=== PATIENT | male | born 1940 | race Caucasian/White ===

== ENCOUNTER 2021-11-18 16:38 | Inpatient (IN) | payer MEDICARE ==
[~2021-11-18 16:38] MED LIST: Atropine Sulfate 1 mg/10 ml Syringe ONE
[2021-11-18 17:39] LABS: #Eosinphils 0.1 10x3/uL (0.0-0.5); #Monocytes 0.4 10x3/uL (0.0-1.1); #Neutrophils 5.7 10x3/uL (1.5-8.4); %Basophils 0.3 % (0.0-2.0); %Eosinophils 2.1 % (0.0-6.0); %Lymphocytes 4.7 % (18.0-47.0); %Monocytes 5.6 % (0.0-10.0); %Neutrophils 86.7 % (40.0-75.0); Hemoglobin 11.2 g/dL (13.5-17.5); Mean Corpuscular HGB CONC 33.4 g/dL (32.0-36.0); Mean Corpuscular Hemoglobin 28.6 pg (27.0-33.0); Mean Corpuscular Volume 85.5 fl (81.2-95.1); Mean Platelet Volume 10.8 fl (7.4-10.4); Platelet Count 202 10x3/uL (150-450); RBC Distribution Width 18.6 % (11.5-14.5); Red Blood Cell (RBC) Count 3.92 10x6/uL (4.32-5.72); White Blood Cell (WBC) Count 6.6 10x3/uL (3.5-10.5)
[2021-11-18 17:48] LABS: ALT (SGPT) 26 U/L (8-55); AST (SGOT) 22 U/L (5-34); Albumin 3.6 g/dL (3.4-4.8); Alkaline Phosphatase 147 U/L (40-110); Anion Gap 17 mmol/L (10-20); BUN (Urea Nitrogen) 55 mg/dL (8.4-25.7); Bilirubin, Total 1.1 mg/dL (0.2-1.2); Calc. Creatinine Clearance 0 mL/min (70-130); Calcium 9.3 mg/dL (7.8-10.44); Carbon Dioxide 24 mmol/L (23-31); Chloride 103 mmol/L (98-107); Globulin 4.7 g/dL (2.4-3.5); Glucose 264 mg/dL (83-110); Potassium 3.9 mmol/L (3.5-5.1); Protein, Total 8.3 g/dL (5.8-8.1); Sodium 140 mmol/L (136-145)
[2021-11-18] MEDS ORDERED: Piperacillin/Tazobactam 4.5 GM VIAL ONE (18:02)
[2021-11-18] MEDS ORDERED: Succinylcholine 200 MG/10 ml SYRINGE FS ONE (18:54)
[2021-11-18] MEDS ORDERED: Rocuronium Bromide 10 MG/ML (10ML VIAL) ONE (18:54)
[2021-11-18 18:55] LABS: CKMB 1.7 ng/mL (0-6.6)
[2021-11-18] MEDS ORDERED: Acetaminophen 325 MG TAB PO PRN (20:30)
[2021-11-18] MEDS ORDERED: Dextrose 5% in Water 1,000 ML IV PRN (20:45)
[2021-11-18] MEDS ORDERED: Atropine Sulfate 1 mg/10 ml Syringe ONE (20:46)
[2021-11-18] MEDS ORDERED: EPINEPHrine 1 MG/10 ML Abboject SYRINGE ONE (20:46)
[2021-11-18 21:06] LABS: Magnesium 2.1 mg/dL (1.6-2.6)
[2021-11-18 21:40] LABS: Troponin I 0.038 ng/mL (< 0.028)
[2021-11-18] MEDS ORDERED: Cholecalciferol 1,000 UNITS (25 MCG) TAB PO SCH (22:45)
[2021-11-18] MEDS ORDERED: Zinc Sulfate 220 MG CAP PO SCH (22:45)
[2021-11-18] MEDS ORDERED: Ascorbic Acid 500 mg Chewable Tablet PO SCH (22:45)
[2021-11-18] MEDS ORDERED: Lantus 1000 UNITS/10 ML VIAL SC SCH (23:00)
[2021-11-18] MEDS ORDERED: Aspirin 81 mg Enteric Coated Tablet PO SCH (23:00)
[2021-11-18] MEDS ORDERED: Atorvastatin Calcium 10 MG TAB PO SCH (23:00)
[2021-11-18] MEDS ORDERED: Dexamethasone 4 mg/ml Vial SLOW IVP SCH (23:00)
[2021-11-18] MEDS: cefTRIAXone\\ROCEPHIN 2 GM in Sodium Chloride 0.9% 100 ML IVPB SCH (23:16)
[2021-11-18] MEDS: Sodium Chloride 0.9% 1,000 ML IV SCH (23:16)
[2021-11-18] MEDS: HumaLOG 300 UNITS/3 ML VIAL SC PRN (23:39)
[2021-11-18] MEDS ORDERED: Vancomycin HCl 500 MG in Sodium Chloride 0.9% 100 ML IVPB SCH (23:45)
[2021-11-19] MEDS: Enoxaparin Sodium 80 MG/0.8 ML SYRINGE SC SCH (00:45)
[2021-11-19] MEDS ORDERED: hydrALAZINE 25 MG TAB PO SCH ×2 (01:00→09:00)
[2021-11-19] MEDS ORDERED: Carvedilol 25 MG TAB PO SCH (01:00)
[2021-11-19] MEDS: Azithromycin 500 MG in Sodium Chloride 0.9% 250 ML 250 ML IVPB SCH (01:27)
[2021-11-19 04:49] LABS: INR-International Normal Ratio 1.2; PTT 35.3 sec (22.0-33.0)
[2021-11-19 04:55] LABS: Anion Gap 15 mmol/L (10-20); BUN (Urea Nitrogen) 53 mg/dL (8.4-25.7); CRP (Inflammatory) 9.84 mg/dL (= or < 0.5); Calc. Creatinine Clearance 32 mL/min (70-130); Calcium 8.6 mg/dL (7.8-10.44); Carbon Dioxide 23 mmol/L (23-31); Chloride 106 mmol/L (98-107); Glucose 298 mg/dL (83-110); Potassium 3.6 mmol/L (3.5-5.1); Sodium 140 mmol/L (136-145)
[2021-11-19 05:03] LABS: Troponin I 0.033 ng/mL (< 0.028)
[2021-11-19 05:32] LABS: #Monocytes 0.1 10x3/uL (0.0-1.1); #Neutrophils 4.4 10x3/uL (1.5-8.4); %Basophils 0.2 % (0.0-2.0); %Lymphocytes 3.9 % (18.0-47.0); %Monocytes 1.1 % (0.0-10.0); %Neutrophils 94.2 % (40.0-75.0); Hemoglobin 9.9 g/dL (13.5-17.5); Mean Corpuscular HGB CONC 33.8 g/dL (32.0-36.0); Mean Corpuscular Hemoglobin 29.1 pg (27.0-33.0); Mean Corpuscular Volume 86.2 fl (81.2-95.1); Mean Platelet Volume 10.9 fl (7.4-10.4); Platelet Count 189 10x3/uL (150-450); RBC Distribution Width 18.2 % (11.5-14.5); White Blood Cell (WBC) Count 4.7 10x3/uL (3.5-10.5)
[2021-11-19] MEDS ORDERED: Dexamethasone 4 mg/ml Vial SLOW IVP SCH (09:00)
[2021-11-19] MEDS: Ascorbic Acid 500 mg Chewable Tablet PO SCH (09:10)
[2021-11-19] MEDS: Amlodipine 10 MG TAB PO SCH (09:11)
[2021-11-19] MEDS: Losartan Potassium 50 MG TAB PO SCH ×2 (09:11→11:19)
[2021-11-19] MEDS: Aspirin 81 mg Enteric Coated Tablet PO SCH (09:12)
[2021-11-19] MEDS: Carvedilol 25 MG TAB PO SCH ×2 (09:12→16:59)
[2021-11-19] MEDS: Zinc Sulfate 220 MG CAP PO SCH (09:12)
[2021-11-19] MEDS: Sodium Chloride 0.9% 1,000 ML IV SCH ×2 (09:13→21:00)
[2021-11-19] MEDS: Mometasone Furoate 220 MCG AER IH SCH ×2 (10:35→19:50)
[2021-11-19] MEDS: HumaLOG 300 UNITS/3 ML VIAL SC PRN (13:22)
[2021-11-19] MEDS: hydrALAZINE 25 MG TAB PO SCH ×2 (15:45→20:07)
[2021-11-19] MEDS: Dexamethasone 20 MG/5 ML VIAL SLOW IVP SCH (20:04)
[2021-11-19] MEDS: Cholecalciferol 1,000 UNITS (25 MCG) TAB PO SCH (20:07)
[2021-11-19] MEDS: Atorvastatin Calcium 10 MG TAB PO SCH (20:09)
[2021-11-19] MEDS: Lantus 1000 UNITS/10 ML VIAL SC SCH (20:10)
[2021-11-19] MEDS ORDERED: Losartan Potassium 50 MG TAB PO SCH (21:00)
[2021-11-20] MEDS: Enoxaparin Sodium 80 MG/0.8 ML SYRINGE SC SCH (00:30)
[2021-11-20] MEDS ORDERED: Azithromycin 500 MG VIAL ONE (01:00)
[2021-11-20] MEDS ORDERED: cefTRIAXone\\ROCEPHIN 2 GM VIAL ONE (01:01)
[2021-11-20] MEDS: cefTRIAXone\\ROCEPHIN 2 GM in Sodium Chloride 0.9% 100 ML IVPB SCH ×2 (01:05→21:46)
[2021-11-20] MEDS: Azithromycin 500 MG in Sodium Chloride 0.9% 250 ML 250 ML IVPB SCH (01:50)
[2021-11-20 06:10] LABS: Vancomycin, Random 6.4 ug/mL (See Comment)
[2021-11-20 06:19] LABS: Troponin I 0.025 ng/mL (< 0.028)
[2021-11-20] MEDS: Sodium Chloride 0.9% 1,000 ML IV SCH ×2 (06:46→15:43)
[2021-11-20] MEDS ORDERED: VANCOMYCIN 1.25 GM/250 ML BAG 1.25 GM in Premix Bag 1 BAG IVPB SCH (08:00)
[2021-11-20] MEDS: Mometasone Furoate 220 MCG AER IH SCH ×2 (08:10→19:20)
[2021-11-20] MEDS: Carvedilol 25 MG TAB PO SCH ×2 (09:20→15:45)
[2021-11-20] MEDS: Dexamethasone 20 MG/5 ML VIAL SLOW IVP SCH ×2 (09:25→21:49)
[2021-11-20] MEDS: Amlodipine 10 MG TAB PO SCH (09:25)
[2021-11-20] MEDS: Aspirin 81 mg Enteric Coated Tablet PO SCH (09:25)
[2021-11-20] MEDS: Ascorbic Acid 500 mg Chewable Tablet PO SCH (09:25)
[2021-11-20] MEDS: hydrALAZINE 25 MG TAB PO SCH ×3 (09:25→21:46)
[2021-11-20] MEDS: Zinc Sulfate 220 MG CAP PO SCH (09:25)
[2021-11-20] MEDS ORDERED: Labetalol HCl 100 MG/20 ML VIAL SLOW IVP PRN (11:01)
[2021-11-20] MEDS: HumaLOG 300 UNITS/3 ML VIAL SC PRN ×2 (17:35→22:31)
[2021-11-20] MEDS ORDERED: Vancomycin 1 GM in Premix Bag 1 BAG IVPB PRN (20:30)
[2021-11-20] MEDS: Cholecalciferol 1,000 UNITS (25 MCG) TAB PO SCH (21:46)
[2021-11-20] MEDS: Atorvastatin Calcium 10 MG TAB PO SCH (21:46)
[2021-11-20] MEDS: Lantus 1000 UNITS/10 ML VIAL SC SCH (21:47)
[2021-11-20] MEDS ORDERED: Amlodipine 10 MG TAB PO SCH (23:30)
[2021-11-21] MEDS: Azithromycin 500 MG in Sodium Chloride 0.9% 250 ML 250 ML IVPB SCH (00:08)
[2021-11-21] MEDS: Enoxaparin Sodium 80 MG/0.8 ML SYRINGE SC SCH (00:08)
[2021-11-21] MEDS: HumaLOG 300 UNITS/3 ML VIAL SC PRN ×3 (06:02→21:58)
[2021-11-21] MEDS: Sodium Chloride 0.9% 1,000 ML IV SCH ×2 (06:11→17:01)
[2021-11-21 07:02] LABS: #Monocytes 0.2 10x3/uL (0.0-1.1); #Neutrophils 14.1 10x3/uL (1.5-8.4); %Basophils 0.1 % (0.0-2.0); %Lymphocytes 1.6 % (18.0-47.0); %Monocytes 1.6 % (0.0-10.0); %Neutrophils 95.7 % (40.0-75.0); Mean Corpuscular HGB CONC 33.7 g/dL (32.0-36.0); Mean Corpuscular Hemoglobin 29.2 pg (27.0-33.0); Mean Corpuscular Volume 86.5 fl (81.2-95.1); Mean Platelet Volume 10.4 fl (7.4-10.4); Platelet Count 245 10x3/uL (150-450); RBC Distribution Width 18.4 % (11.5-14.5); Red Blood Cell (RBC) Count 3.77 10x6/uL (4.32-5.72); White Blood Cell (WBC) Count 14.8 10x3/uL (3.5-10.5)
[2021-11-21 07:23] LABS: Vancomycin, Random 13.6 ug/mL (See Comment)
[2021-11-21 07:25] LABS: Anion Gap 15 mmol/L (10-20); BUN (Urea Nitrogen) 63 mg/dL (8.4-25.7); CRP (Inflammatory) 3.42 mg/dL (= or < 0.5); Calc. Creatinine Clearance 32 mL/min (70-130); Calcium 8.7 mg/dL (7.8-10.44); Carbon Dioxide 21 mmol/L (23-31); Chloride 105 mmol/L (98-107); Glucose 274 mg/dL (83-110); Potassium 3.9 mmol/L (3.5-5.1); Sodium 137 mmol/L (136-145)
[2021-11-21] MEDS ORDERED: Lantus 1000 UNITS/10 ML VIAL SC SCH ×2 (09:00→10:15)
[2021-11-21] MEDS ORDERED: Vancomycin HCl 500 MG in Sodium Chloride 0.9% 100 ML IVPB SCH (09:00)
[2021-11-21] MEDS: Aspirin 81 mg Enteric Coated Tablet PO SCH (09:11)
[2021-11-21] MEDS: Ascorbic Acid 500 mg Chewable Tablet PO SCH (09:11)
[2021-11-21] MEDS: hydrALAZINE 25 MG TAB PO SCH ×3 (09:11→21:38)
[2021-11-21] MEDS: Dexamethasone 20 MG/5 ML VIAL SLOW IVP SCH ×2 (09:11→21:38)
[2021-11-21] MEDS: Amlodipine 10 MG TAB PO SCH (09:11)
[2021-11-21] MEDS: Carvedilol 25 MG TAB PO SCH ×2 (09:11→17:04)
[2021-11-21] MEDS: Zinc Sulfate 220 MG CAP PO SCH (09:12)
[2021-11-21] MEDS: Mometasone Furoate 220 MCG AER IH SCH ×2 (10:17→18:11)
[2021-11-21] MEDS ORDERED: cloNIDine 0.3mg/24 Hour PATCH TD SCH (17:00)
[2021-11-21] MEDS: Atorvastatin Calcium 10 MG TAB PO SCH (21:38)
[2021-11-21] MEDS: Famotidine 20 MG TAB PO SCH (21:38)
[2021-11-21] MEDS: Cefepime 1 GM in Sodium Chloride 0.9% 100 ML IVPB SCH (21:39)
[2021-11-21] MEDS: Lantus 1000 UNITS/10 ML VIAL SC SCH (21:39)
[2021-11-21] MEDS: Cholecalciferol 1,000 UNITS (25 MCG) TAB PO SCH (21:39)
[2021-11-22] MEDS: Azithromycin 500 MG in Sodium Chloride 0.9% 250 ML 250 ML IVPB SCH (00:41)
[2021-11-22] MEDS: Enoxaparin Sodium 80 MG/0.8 ML SYRINGE SC SCH (00:41)
[2021-11-22] MEDS: Sodium Chloride 0.9% 1,000 ML IV SCH ×3 (05:19→19:00)
[2021-11-22] MEDS: HumaLOG 300 UNITS/3 ML VIAL SC PRN (05:19)
[2021-11-22 05:30] LABS: Vancomycin, Random 11.9 ug/mL (See Comment)
[2021-11-22 05:37] LABS: Anion Gap 16 mmol/L (10-20); BUN (Urea Nitrogen) 63 mg/dL (8.4-25.7); CRP (Inflammatory) 2.69 mg/dL (= or < 0.5); Calc. Creatinine Clearance 34 mL/min (70-130); Calcium 8.8 mg/dL (7.8-10.44); Carbon Dioxide 18 mmol/L (23-31); Chloride 109 mmol/L (98-107); Glucose 203 mg/dL (83-110); Sodium 139 mmol/L (136-145)
[2021-11-22 06:34] LABS: #Monocytes 0.5 10x3/uL (0.0-1.1); #Neutrophils 17.3 10x3/uL (1.5-8.4); %Basophils 0.2 % (0.0-2.0); %Lymphocytes 0.9 % (18.0-47.0); %Monocytes 2.7 % (0.0-10.0); %Neutrophils 93.9 % (40.0-75.0); Hemoglobin 10.8 g/dL (13.5-17.5); Mean Corpuscular HGB CONC 30.9 g/dL (32.0-36.0); Mean Corpuscular Hemoglobin 25.8 pg (27.0-33.0); Mean Corpuscular Volume 83.5 fl (81.2-95.1); Mean Platelet Volume 10.4 fl (7.4-10.4); Platelet Count 265 10x3/uL (150-450); RBC Distribution Width 17.9 % (11.5-14.5); Red Blood Cell (RBC) Count 4.19 10x6/uL (4.32-5.72); White Blood Cell (WBC) Count 18.4 10x3/uL (3.5-10.5)
[2021-11-22] MEDS ORDERED: Vancomycin HCl 750 MG in Sodium Chloride 0.9% 250 ML 250 ML IVPB SCH (07:30)
[2021-11-22] MEDS: Mometasone Furoate 220 MCG AER IH SCH ×2 (08:21→21:30)
[2021-11-22] MEDS: Carvedilol 25 MG TAB PO SCH ×2 (09:00→19:00)
[2021-11-22] MEDS: Aspirin 81 mg Enteric Coated Tablet PO SCH (09:00)
[2021-11-22] MEDS ORDERED: Lantus 1000 UNITS/10 ML VIAL SC SCH (09:00)
[2021-11-22] MEDS: Zinc Sulfate 220 MG CAP PO SCH (09:00)
[2021-11-22] MEDS: Ascorbic Acid 500 mg Chewable Tablet PO SCH (09:00)
[2021-11-22] MEDS: Amlodipine 10 MG TAB PO SCH (09:00)
[2021-11-22] MEDS: Dexamethasone 20 MG/5 ML VIAL SLOW IVP SCH (09:00)
[2021-11-22] MEDS: hydrALAZINE 25 MG TAB PO SCH ×3 (09:00→21:06)
[2021-11-22] MEDS: Cefepime 1 GM in Sodium Chloride 0.9% 100 ML IVPB SCH ×2 (13:45→21:04)
[2021-11-22] MEDS: Lantus 1000 UNITS/10 ML VIAL SC SCH (21:06)
[2021-11-22] MEDS: Cholecalciferol 1,000 UNITS (25 MCG) TAB PO SCH (21:06)
[2021-11-22] MEDS: Atorvastatin Calcium 10 MG TAB PO SCH (21:06)
[2021-11-22] MEDS: Famotidine 20 MG TAB PO SCH (21:06)
[2021-11-23] MEDS: Azithromycin 500 MG in Sodium Chloride 0.9% 250 ML 250 ML IVPB SCH (01:24)
[2021-11-23] MEDS: Enoxaparin Sodium 80 MG/0.8 ML SYRINGE SC SCH (02:02)
[2021-11-23 04:45] LABS: Anion Gap 17 mmol/L (10-20); BUN (Urea Nitrogen) 64 mg/dL (8.4-25.7); CRP (Inflammatory) 4.28 mg/dL (= or < 0.5); Calc. Creatinine Clearance 31 mL/min (70-130); Calcium 8.4 mg/dL (7.8-10.44); Carbon Dioxide 16 mmol/L (23-31); Chloride 113 mmol/L (98-107); Potassium 4.7 mmol/L (3.5-5.1); Sodium 141 mmol/L (136-145)
[2021-11-23 04:52] LABS: Glucose 53 mg/dL (83-110)
[2021-11-23] MEDS: Dextrose 50% Abboject 50 ML SYRINGE SLOW IVP PRN ×4 (05:21→11:55)
[2021-11-23 05:35] LABS: Actual Bicarbonate (HCO3a) 21.7 mEq/L (22-28); Base Excess (BEa) -5.6 mEq/L (-2.0 to +3.0); CO2 Tension 50.4 mmHg (35.0-45.0); Calcium, Ionized (arterial) 1.21 mmol/L (1.12-1.30); Carboxyhemoglobin (COHb) 0.5 gm% (0.0-3.0); Hemoglobin (Hb) 11.4 g/dL (14.0-18.0); O2 Tension (PaO2), arterial 54.7 mmHg (> 60.0); Potassium - ABG Lab 4.2 mmol/L (3.70-5.30); Puncture Site RRA; pH, Arterial 7.25 (7.35-7.45)
[2021-11-23 06:35] LABS: Vancomycin, Random 13.2 ug/mL (See Comment)
[2021-11-23 06:38] LABS: Glucose 52 mg/dL (83-110)
[2021-11-23] MEDS ORDERED: Vancomycin HCl 1 GM in Sodium Chloride 0.9% 250 ML 250 ML IVPB SCH (07:00)
[2021-11-23 07:08] LABS: #Monocytes 0.6 10x3/uL (0.0-1.1); #Neutrophils 17.4 10x3/uL (1.5-8.4); %Basophils 0.1 % (0.0-2.0); %Eosinophils 0.1 % (0.0-6.0); %Lymphocytes 0.9 % (18.0-47.0); %Monocytes 3.4 % (0.0-10.0); %Neutrophils 94.1 % (40.0-75.0); Hemoglobin 10.3 g/dL (13.5-17.5); Mean Corpuscular HGB CONC 34.2 g/dL (32.0-36.0); Mean Corpuscular Hemoglobin 30.4 pg (27.0-33.0); Mean Corpuscular Volume 88.8 fl (81.2-95.1); Mean Platelet Volume 10.1 fl (7.4-10.4); Platelet Count 179 10x3/uL (150-450); RBC Distribution Width 18.8 % (11.5-14.5); Red Blood Cell (RBC) Count 3.39 10x6/uL (4.32-5.72); White Blood Cell (WBC) Count 18.5 10x3/uL (3.5-10.5)
[2021-11-23] MEDS: Mometasone Furoate 220 MCG AER IH SCH ×2 (07:53→20:29)
[2021-11-23] MEDS: Dextrose 10% in Water 1,000 ML IV SCH (08:37)
[2021-11-23] MEDS ORDERED: Dexamethasone 20 MG/5 ML VIAL SLOW IVP SCH (09:00)
[2021-11-23] MEDS: Cefepime 1 GM in Sodium Chloride 0.9% 100 ML IVPB SCH (09:45)
[2021-11-23] MEDS: Dexamethasone 20 MG/5 ML VIAL SLOW IVP SCH ×2 (09:46→21:15)
[2021-11-23 10:04] LABS: Actual Bicarbonate (HCO3a) 21.6 mEq/L (22-28); Base Excess (BEa) -3.9 mEq/L (-2.0 to +3.0); Carboxyhemoglobin (COHb) 0.3 gm% (0.0-3.0); Hemoglobin (Hb) 10.4 g/dL (14.0-18.0); O2 Tension (PaO2), arterial 53.7 mmHg (> 60.0); Potassium - ABG Lab 3.7 mmol/L (3.70-5.30); Puncture Site LBA; pH, Arterial 7.34 (7.35-7.45)
[2021-11-23] MEDS: Amlodipine 10 MG TAB PO SCH (10:27)
[2021-11-23] MEDS: Ascorbic Acid 500 mg Chewable Tablet PO SCH (10:27)
[2021-11-23] MEDS: Carvedilol 25 MG TAB PO SCH ×2 (10:27→17:25)
[2021-11-23] MEDS: Aspirin 81 mg Enteric Coated Tablet PO SCH (10:28)
[2021-11-23] MEDS: Zinc Sulfate 220 MG CAP PO SCH (10:28)
[2021-11-23] MEDS: hydrALAZINE 25 MG TAB PO SCH ×3 (10:28→21:12)
[2021-11-23 13:45] LABS: Legionella Urinary Ag Negative (Negative)
[2021-11-23 13:46] LABS: Strep pneumo Urine Ag NEGATIVE (NEGATIVE)
[2021-11-23] MEDS ORDERED: Piperacillin/Tazobactam 3.375 GM in Sodium Chloride 0.9% 100 ML IVPB SCH ×2 (14:15→18:15)
[2021-11-23] MEDS ORDERED: Furosemide 40 MG/4 ML VIAL SLOW IVP SCH ×2 (14:30→20:00)
[2021-11-23] MEDS: Sodium Bicarbonate Tab 325 MG TAB PO SCH ×2 (17:08→21:12)
[2021-11-23] MEDS: BARICITINIB 1 MG TAB PO SCH (17:27)
[2021-11-23] MEDS ORDERED: Lantus 1000 UNITS/10 ML VIAL SC SCH (21:00)
[2021-11-23] MEDS ORDERED: Enoxaparin Sodium 80 MG/0.8 ML SYRINGE SC SCH (21:00)
[2021-11-23] MEDS: Atorvastatin Calcium 10 MG TAB PO SCH (21:12)
[2021-11-23] MEDS: Cholecalciferol 1,000 UNITS (25 MCG) TAB PO SCH (21:12)
[2021-11-23] MEDS: Piperacillin/Tazobactam 3.375 GM in Sodium Chloride 0.9% 100 ML IVPB SCH (21:13)
[2021-11-23] MEDS: Famotidine 20 MG TAB PO SCH (21:15)
[2021-11-24] MEDS: Dextrose 10% in Water 1,000 ML IV SCH (03:14)
[2021-11-24 04:30] LABS: #Monocytes 0.3 10x3/uL (0.0-1.1); #Neutrophils 18.8 10x3/uL (1.5-8.4); %Basophils 0.1 % (0.0-2.0); %Lymphocytes 0.9 % (18.0-47.0); %Monocytes 1.6 % (0.0-10.0); %Neutrophils 95.9 % (40.0-75.0); Hemoglobin 10.4 g/dL (13.5-17.5); Mean Corpuscular HGB CONC 33.5 g/dL (32.0-36.0); Mean Corpuscular Hemoglobin 28.8 pg (27.0-33.0); Mean Corpuscular Volume 85.9 fl (81.2-95.1); Mean Platelet Volume 10.1 fl (7.4-10.4); Platelet Count 168 10x3/uL (150-450); RBC Distribution Width 18.7 % (11.5-14.5); Red Blood Cell (RBC) Count 3.61 10x6/uL (4.32-5.72); White Blood Cell (WBC) Count 19.6 10x3/uL (3.5-10.5)
[2021-11-24 04:53] LABS: ALT (SGPT) 30 U/L (8-55); AST (SGOT) 29 U/L (5-34); Albumin 2.9 g/dL (3.4-4.8); Alkaline Phosphatase 97 U/L (40-110); Anion Gap 15 mmol/L (10-20); BUN (Urea Nitrogen) 57 mg/dL (8.4-25.7); Bilirubin, Total 1.3 mg/dL (0.2-1.2); Calc. Creatinine Clearance 33 mL/min (70-130); Carbon Dioxide 24 mmol/L (23-31); Chloride 109 mmol/L (98-107); Globulin 4.1 g/dL (2.4-3.5); Glucose 186 mg/dL (83-110); Potassium 3.9 mmol/L (3.5-5.1); Sodium 144 mmol/L (136-145)
[2021-11-24 06:04] LABS: Vancomycin, Random 15.2 ug/mL (See Comment)
[2021-11-24] MEDS: Piperacillin/Tazobactam 3.375 GM in Sodium Chloride 0.9% 100 ML IVPB SCH ×3 (06:15→21:04)
[2021-11-24] MEDS: Mometasone Furoate 220 MCG AER IH SCH ×2 (07:13→20:14)
[2021-11-24] MEDS ORDERED: Vancomycin HCl 500 MG in Sodium Chloride 0.9% 100 ML IVPB SCH (08:00)
[2021-11-24 08:18] LABS: Actual Bicarbonate (HCO3a) 24.5 mEq/L (22-28); Base Excess (BEa) -1.9 mEq/L (-2.0 to +3.0); CO2 Tension 48.1 mmHg (35.0-45.0); Carboxyhemoglobin (COHb) 0.4 gm% (0.0-3.0); Hemoglobin (Hb) 12.7 g/dL (14.0-18.0); O2 Tension (PaO2), arterial 53.2 mmHg (> 60.0); Potassium - ABG Lab 3.9 mmol/L (3.70-5.30); Puncture Site LBA; pH, Arterial 7.32 (7.35-7.45)
[2021-11-24] MEDS: Carvedilol 25 MG TAB PO SCH ×2 (08:19→16:41)
[2021-11-24] MEDS: Zinc Sulfate 220 MG CAP PO SCH (08:21)
[2021-11-24] MEDS: Aspirin 81 mg Enteric Coated Tablet PO SCH (08:21)
[2021-11-24] MEDS: Ascorbic Acid 500 mg Chewable Tablet PO SCH (08:21)
[2021-11-24] MEDS: hydrALAZINE 25 MG TAB PO SCH ×3 (08:21→21:05)
[2021-11-24] MEDS: Sodium Bicarbonate Tab 325 MG TAB PO SCH ×3 (08:21→21:04)
[2021-11-24] MEDS: Amlodipine 10 MG TAB PO SCH (08:21)
[2021-11-24 08:22] LABS: ALV-art Gradient 528.375 mmHg (0-20)
[2021-11-24] MEDS: Dexamethasone 20 MG/5 ML VIAL SLOW IVP SCH ×2 (08:22→21:05)
[2021-11-24] MEDS: HumaLOG 300 UNITS/3 ML VIAL SC PRN ×4 (08:22→21:03)
[2021-11-24] MEDS: Furosemide 40 MG/4 ML VIAL SLOW IVP SCH (08:22)
[2021-11-24] MEDS: BARICITINIB 1 MG TAB PO SCH (16:41)
[2021-11-24] MEDS ORDERED: Sodium Chloride 0.9% 100 ML ONE (21:01)
[2021-11-24] MEDS ORDERED: Piperacillin/Tazobactam 3.375 GM VIAL ONE (21:01)
[2021-11-24] MEDS ORDERED: Enoxaparin Sodium 80 MG/0.8 ML SYRINGE ONE (21:02)
[2021-11-24] MEDS: Cholecalciferol 1,000 UNITS (25 MCG) TAB PO SCH (21:04)
[2021-11-24] MEDS: Enoxaparin Sodium 80 MG/0.8 ML SYRINGE SC SCH (21:06)
[2021-11-24] MEDS: Atorvastatin Calcium 10 MG TAB PO SCH (21:06)
[2021-11-24] MEDS: Famotidine 20 MG TAB PO SCH (21:07)
[2021-11-25] MEDS: HumaLOG 300 UNITS/3 ML VIAL SC PRN ×5 (00:31→20:25)
[2021-11-25 04:12] LABS: Hemoglobin 9.9 g/dL (13.5-17.5); Mean Corpuscular HGB CONC 32.6 g/dL (32.0-36.0); Mean Corpuscular Hemoglobin 27.3 pg (27.0-33.0); Mean Corpuscular Volume 83.7 fl (81.2-95.1); Mean Platelet Volume 10.4 fl (7.4-10.4); Platelet Count 195 10x3/uL (150-450); RBC Distribution Width 18.2 % (11.5-14.5); Red Blood Cell (RBC) Count 3.63 10x6/uL (4.32-5.72); White Blood Cell (WBC) Count 21.2 10x3/uL (3.5-10.5)
[2021-11-25 04:18] LABS: ALT (SGPT) 30 U/L (8-55); AST (SGOT) 22 U/L (5-34); Albumin 2.6 g/dL (3.4-4.8); Alkaline Phosphatase 95 U/L (40-110); Anion Gap 17 mmol/L (10-20); BUN (Urea Nitrogen) 63 mg/dL (8.4-25.7); Bilirubin, Total 1.1 mg/dL (0.2-1.2); Calc. Creatinine Clearance 34 mL/min (70-130); Calcium 8.7 mg/dL (7.8-10.44); Carbon Dioxide 23 mmol/L (23-31); Chloride 105 mmol/L (98-107); Globulin 4.1 g/dL (2.4-3.5); Glucose 347 mg/dL (83-110); Potassium 4.2 mmol/L (3.5-5.1); Protein, Total 6.7 g/dL (5.8-8.1); Sodium 141 mmol/L (136-145)
[2021-11-25 04:38] LABS: MDiff Complete? YES
[2021-11-25 04:41] LABS: Band 3 % (5-11); Lymphocytes 2 % (21-51); Monocytes 2 % (0-10); Neutrophil 93 % (42-75)
[2021-11-25 04:43] LABS: Platelet Morphology Comment Appears Adequate; RBC Morphology Normal
[2021-11-25] MEDS: Piperacillin/Tazobactam 3.375 GM in Sodium Chloride 0.9% 100 ML IVPB SCH ×3 (06:09→20:22)
[2021-11-25] MEDS: Mometasone Furoate 220 MCG AER IH SCH ×2 (07:25→19:25)
[2021-11-25] MEDS: Sodium Bicarbonate Tab 325 MG TAB PO SCH ×3 (08:49→20:24)
[2021-11-25] MEDS: Aspirin 81 mg Enteric Coated Tablet PO SCH (08:49)
[2021-11-25] MEDS: hydrALAZINE 25 MG TAB PO SCH ×3 (08:50→20:22)
[2021-11-25] MEDS: Zinc Sulfate 220 MG CAP PO SCH (08:50)
[2021-11-25] MEDS: Ascorbic Acid 500 mg Chewable Tablet PO SCH (08:50)
[2021-11-25] MEDS: Amlodipine 10 MG TAB PO SCH (08:51)
[2021-11-25] MEDS: Dexamethasone 20 MG/5 ML VIAL SLOW IVP SCH ×2 (08:51→20:20)
[2021-11-25] MEDS: Vancomycin HCl 750 MG in Sodium Chloride 0.9% 250 ML 250 ML IVPB SCH (08:52)
[2021-11-25] MEDS: Furosemide 40 MG/4 ML VIAL SLOW IVP SCH (08:52)
[2021-11-25 10:35] LABS: Actual Bicarbonate (HCO3a) 24.7 mEq/L (22-28); Base Excess (BEa) -0.7 mEq/L (-2.0 to +3.0); CO2 Tension 43.9 mmHg (35.0-45.0); Calcium, Ionized (arterial) 1.19 mmol/L (1.12-1.30); Carboxyhemoglobin (COHb) 0.2 gm% (0.0-3.0); Hemoglobin (Hb) 10.2 g/dL (14.0-18.0); O2 Tension (PaO2), arterial 62.4 mmHg (> 60.0); Potassium - ABG Lab 4.1 mmol/L (3.70-5.30); Puncture Site LRA; pH, Arterial 7.37 (7.35-7.45)
[2021-11-25 10:39] LABS: ALV-art Gradient 595.725 mmHg (0-20)
[2021-11-25] MEDS ORDERED: Lantus 1000 UNITS/10 ML VIAL SC SCH (11:00)
[2021-11-25] MEDS: BARICITINIB 1 MG TAB PO SCH (16:35)
[2021-11-25] MEDS ORDERED: BARICITINIB 2 MG TAB PO SCH (17:00)
[2021-11-25] MEDS: Cholecalciferol 1,000 UNITS (25 MCG) TAB PO SCH (20:20)
[2021-11-25] MEDS: Atorvastatin Calcium 10 MG TAB PO SCH (20:20)
[2021-11-25] MEDS: Enoxaparin Sodium 80 MG/0.8 ML SYRINGE SC SCH (20:21)
[2021-11-25] MEDS: Famotidine 20 MG TAB PO SCH (20:22)
[2021-11-26 04:29] LABS: ALT (SGPT) 38 U/L (8-55); AST (SGOT) 28 U/L (5-34); Albumin 2.8 g/dL (3.4-4.8); Alkaline Phosphatase 103 U/L (40-110); Anion Gap 19 mmol/L (10-20); BUN (Urea Nitrogen) 66 mg/dL (8.4-25.7); Bilirubin, Total 1.1 mg/dL (0.2-1.2); Calc. Creatinine Clearance 34 mL/min (70-130); Carbon Dioxide 22 mmol/L (23-31); Chloride 105 mmol/L (98-107); Globulin 4.3 g/dL (2.4-3.5); Glucose 337 mg/dL (83-110); Potassium 4.6 mmol/L (3.5-5.1); Protein, Total 7.1 g/dL (5.8-8.1); Sodium 141 mmol/L (136-145)
[2021-11-26] MEDS: Piperacillin/Tazobactam 3.375 GM in Sodium Chloride 0.9% 100 ML IVPB SCH ×3 (05:39→20:34)
[2021-11-26] MEDS: HumaLOG 300 UNITS/3 ML VIAL SC PRN ×4 (05:40→17:02)
[2021-11-26] MEDS: Mometasone Furoate 220 MCG AER IH SCH ×2 (07:30→23:03)
[2021-11-26] MEDS: Aspirin 81 mg Enteric Coated Tablet PO SCH (08:17)
[2021-11-26] MEDS: Dexamethasone 20 MG/5 ML VIAL SLOW IVP SCH ×2 (08:17→20:33)
[2021-11-26] MEDS: Furosemide 40 MG/4 ML VIAL SLOW IVP SCH (08:17)
[2021-11-26] MEDS: hydrALAZINE 25 MG TAB PO SCH ×3 (08:18→20:34)
[2021-11-26] MEDS: Ascorbic Acid 500 mg Chewable Tablet PO SCH (08:18)
[2021-11-26] MEDS: Zinc Sulfate 220 MG CAP PO SCH (08:18)
[2021-11-26] MEDS: Amlodipine 10 MG TAB PO SCH (08:18)
[2021-11-26] MEDS: Sodium Bicarbonate Tab 325 MG TAB PO SCH ×3 (08:18→20:34)
[2021-11-26] MEDS: Vancomycin HCl 750 MG in Sodium Chloride 0.9% 250 ML 250 ML IVPB SCH (08:19)
[2021-11-26] MEDS ORDERED: Carvedilol 3.125 MG TAB PO SCH (08:30)
[2021-11-26] MEDS ORDERED: Lantus 1000 UNITS/10 ML VIAL SC SCH (09:00)
[2021-11-26] MEDS: Sodium Chloride 0.9% 1,000 ML IV SCH (09:06)
[2021-11-26 09:31] LABS: Vancomycin, Trough 23.6 ug/mL
[2021-11-26] MEDS: Carvedilol 3.125 MG TAB PO SCH (17:01)
[2021-11-26] MEDS: BARICITINIB 1 MG TAB PO SCH (17:01)
[2021-11-26] MEDS: Cholecalciferol 1,000 UNITS (25 MCG) TAB PO SCH (20:33)
[2021-11-26] MEDS: Atorvastatin Calcium 10 MG TAB PO SCH (20:33)
[2021-11-26] MEDS: Famotidine 20 MG TAB PO SCH (20:34)
[2021-11-26] MEDS: Enoxaparin Sodium 80 MG/0.8 ML SYRINGE SC SCH (20:34)
[2021-11-27 04:02] LABS: Anion Gap 16 mmol/L (10-20); BUN (Urea Nitrogen) 68 mg/dL (8.4-25.7); Calc. Creatinine Clearance 35 mL/min (70-130); Carbon Dioxide 30 mmol/L (23-31); Chloride 103 mmol/L (98-107); Glucose 241 mg/dL (83-110); Potassium 4.6 mmol/L (3.5-5.1); Sodium 144 mmol/L (136-145)
[2021-11-27 04:47] LABS: #Monocytes 0.4 10x3/uL (0.0-1.1); #Neutrophils 14.3 10x3/uL (1.5-8.4); %Basophils 0.1 % (0.0-2.0); %Monocytes 2.4 % (0.0-10.0); %Neutrophils 94.1 % (40.0-75.0); Hemoglobin 9.2 g/dL (13.5-17.5); Mean Corpuscular HGB CONC 31.3 g/dL (32.0-36.0); Mean Corpuscular Volume 83.1 fl (81.2-95.1); Platelet Count 233 10x3/uL (150-450); RBC Distribution Width 18.2 % (11.5-14.5); Red Blood Cell (RBC) Count 3.54 10x6/uL (4.32-5.72); White Blood Cell (WBC) Count 15.2 10x3/uL (3.5-10.5)
[2021-11-27] MEDS: Piperacillin/Tazobactam 3.375 GM in Sodium Chloride 0.9% 100 ML IVPB SCH ×3 (05:36→20:49)
[2021-11-27] MEDS: HumaLOG 300 UNITS/3 ML VIAL SC PRN ×3 (05:37→16:32)
[2021-11-27] MEDS: Dexamethasone 20 MG/5 ML VIAL SLOW IVP SCH ×2 (07:35→20:49)
[2021-11-27] MEDS: Furosemide 40 MG/4 ML VIAL SLOW IVP SCH (07:35)
[2021-11-27] MEDS: Amlodipine 10 MG TAB PO SCH (07:38)
[2021-11-27] MEDS: Sodium Bicarbonate Tab 325 MG TAB PO SCH ×3 (07:40→20:50)
[2021-11-27] MEDS: Ascorbic Acid 500 mg Chewable Tablet PO SCH (07:40)
[2021-11-27] MEDS: Zinc Sulfate 220 MG CAP PO SCH (07:40)
[2021-11-27] MEDS: Aspirin 81 mg Enteric Coated Tablet PO SCH (07:40)
[2021-11-27] MEDS: hydrALAZINE 25 MG TAB PO SCH ×3 (07:40→20:49)
[2021-11-27] MEDS: Carvedilol 3.125 MG TAB PO SCH ×2 (07:40→16:35)
[2021-11-27] MEDS: Lantus 1000 UNITS/10 ML VIAL SC SCH (09:08)
[2021-11-27] MEDS: Vancomycin HCl 750 MG in Sodium Chloride 0.9% 250 ML 250 ML IVPB SCH (09:12)
[2021-11-27 09:37] LABS: Vancomycin, Random 14.6 ug/mL (See Comment)
[2021-11-27] MEDS: Mometasone Furoate 220 MCG AER IH SCH ×2 (10:33→20:08)
[2021-11-27 11:15] LABS: Base Excess (BEa) 5.5 mEq/L (-2.0 to +3.0); Calcium, Ionized (arterial) 1.17 mmol/L (1.12-1.30); Carboxyhemoglobin (COHb) 0.4 gm% (0.0-3.0); Hemoglobin (Hb) 9.2 g/dL (14.0-18.0); O2 Tension (PaO2), arterial 68.6 mmHg (> 60.0); Potassium - ABG Lab 4.2 mmol/L (3.70-5.30); Puncture Site LRA; pH, Arterial 7.36 (7.35-7.45)
[2021-11-27] MEDS ORDERED: Fentanyl BOLUS 250 ML IVPB PRN (15:15)
[2021-11-27] MEDS ORDERED: DISCONTINUE PREVIOUS NARCOTIC PAIN MEDICATIONS AND BENZODIAZEPINES FS SCH (15:15)
[2021-11-27] MEDS ORDERED: Ventilator Sedation Protocol 1 EACH FS SCH (15:15)
[2021-11-27] MEDS ORDERED: Propofol BOLUS 1,000 MG/100 ML VIAL IV PRN (15:15)
[2021-11-27] MEDS ORDERED: Lorazepam 2 MG/ML VIAL SLOW IVP PRN (15:15)
[2021-11-27] MEDS ORDERED: Morphine 2 MG/ML VIAL SLOW IVP PRN (15:15)
[2021-11-27] MEDS ORDERED: Ventilator Sedation Protocol 1 EACH FS ONE (15:21)
[2021-11-27] MEDS: Propofol 1,000 MG/100 ML VIAL IV PRN ×3 (15:21→22:59)
[2021-11-27] MEDS: fentaNYL Citrate-0.9 % NaCl/PF 100 ML IVPB SCH (15:30)
[2021-11-27 15:45] LABS: Actual Bicarbonate (HCO3a) 31.6 mEq/L (22-28); Base Excess (BEa) 4.8 mEq/L (-2.0 to +3.0); CO2 Tension 59.6 mmHg (35.0-45.0); Calcium, Ionized (arterial) 1.16 mmol/L (1.12-1.30); Carboxyhemoglobin (COHb) 0.1 gm% (0.0-3.0); Hemoglobin (Hb) 9.6 g/dL (14.0-18.0); O2 Tension (PaO2), arterial 53.5 mmHg (> 60.0); Potassium - ABG Lab 4.4 mmol/L (3.70-5.30); Puncture Site LRA; pH, Arterial 7.34 (7.35-7.45)
[2021-11-27] MEDS: BARICITINIB 1 MG TAB PO SCH (16:32)
[2021-11-27] MEDS: Vecuronium 10 MG VIAL IV PRN (18:00)
[2021-11-27] MEDS: Cholecalciferol 1,000 UNITS (25 MCG) TAB PO SCH (20:48)
[2021-11-27] MEDS: Atorvastatin Calcium 10 MG TAB PO SCH (20:48)
[2021-11-27] MEDS: Enoxaparin Sodium 80 MG/0.8 ML SYRINGE SC SCH (20:49)
[2021-11-27] MEDS: Famotidine 20 MG TAB PO SCH (20:49)
[2021-11-28] MEDS ORDERED: Atropine Sulfate 1 mg/10 ml Syringe IVP PRN (01:07)
[2021-11-28 02:29] LABS: #Monocytes 0.3 10x3/uL (0.0-1.1); #Neutrophils 9.8 10x3/uL (1.5-8.4); %Eosinophils 0.1 % (0.0-6.0); %Monocytes 3.1 % (0.0-10.0); %Neutrophils 93.8 % (40.0-75.0); Hemoglobin 7.5 g/dL (13.5-17.5); Mean Corpuscular HGB CONC 31.9 g/dL (32.0-36.0); Mean Corpuscular Hemoglobin 27.2 pg (27.0-33.0); Mean Corpuscular Volume 85.1 fl (81.2-95.1); Mean Platelet Volume 12.5 fl (7.4-10.4); Platelet Count 162 10x3/uL (150-450); RBC Distribution Width 18.3 % (11.5-14.5); Red Blood Cell (RBC) Count 2.76 10x6/uL (4.32-5.72); White Blood Cell (WBC) Count 10.4 10x3/uL (3.5-10.5)
[2021-11-28 02:52] LABS: Anion Gap 18 mmol/L (10-20); BUN (Urea Nitrogen) 71 mg/dL (8.4-25.7); CRP (Inflammatory) 2.91 mg/dL (= or < 0.5); Calc. Creatinine Clearance 34 mL/min (70-130); Calcium 8.4 mg/dL (7.8-10.44); Carbon Dioxide 30 mmol/L (23-31); Chloride 105 mmol/L (98-107); Glucose 223 mg/dL (83-110); Magnesium 2.3 mg/dL (1.6-2.6); Potassium 4.6 mmol/L (3.5-5.1); Sodium 148 mmol/L (136-145)
[2021-11-28] MEDS ORDERED: Water For Injection,Sterile 20 ML ONE (04:34)
[2021-11-28] MEDS: Vecuronium 10 MG VIAL IV PRN ×3 (04:35→13:44)
[2021-11-28] MEDS: Piperacillin/Tazobactam 3.375 GM in Sodium Chloride 0.9% 100 ML IVPB SCH ×3 (05:20→20:11)
[2021-11-28] MEDS: Propofol 1,000 MG/100 ML VIAL IV PRN ×3 (05:29→20:09)
[2021-11-28] MEDS ORDERED: Carvedilol 3.125 MG TAB PO SCH (08:00)
[2021-11-28] MEDS: Lantus 1000 UNITS/10 ML VIAL SC SCH (08:19)
[2021-11-28] MEDS: hydrALAZINE 25 MG TAB PO SCH ×3 (08:20→20:11)
[2021-11-28] MEDS: Aspirin Chewable 81 MG TAB PO SCH (08:21)
[2021-11-28] MEDS: Ascorbic Acid 500 mg Chewable Tablet PO SCH (08:21)
[2021-11-28] MEDS: Amlodipine 10 MG TAB PO SCH (08:21)
[2021-11-28] MEDS: Dexamethasone 20 MG/5 ML VIAL SLOW IVP SCH ×2 (08:22→20:10)
[2021-11-28] MEDS: Furosemide 40 MG/4 ML VIAL SLOW IVP SCH (08:23)
[2021-11-28] MEDS: Sodium Bicarbonate Tab 325 MG TAB PO SCH ×2 (08:24→15:58)
[2021-11-28] MEDS: Zinc Sulfate 220 MG CAP PO SCH (08:24)
[2021-11-28] MEDS ORDERED: cloNIDine 0.3mg/24 Hour PATCH TD SCH (09:00)
[2021-11-28] MEDS ORDERED: Vancomycin HCl 1 GM in Sodium Chloride 0.9% 250 ML 250 ML IVPB SCH (09:00)
[2021-11-28] MEDS: Mometasone Furoate 220 MCG AER IH SCH ×2 (09:01→20:14)
[2021-11-28] MEDS: BARICITINIB 1 MG TAB PO SCH (16:01)
[2021-11-28] MEDS: HumaLOG 300 UNITS/3 ML VIAL SC PRN ×2 (16:15→22:35)
[2021-11-28] MEDS: Cholecalciferol 1,000 UNITS (25 MCG) TAB PO SCH (20:09)
[2021-11-28] MEDS: Famotidine 20 MG TAB PO SCH (20:09)
[2021-11-28] MEDS: Atorvastatin Calcium 10 MG TAB PO SCH (20:10)
[2021-11-28] MEDS ORDERED: Enoxaparin Sodium 100 MG/ML SYRINGE SC SCH (21:00)
[2021-11-29 04:00] LABS: Anion Gap 15 mmol/L (10-20); BUN (Urea Nitrogen) 76 mg/dL (8.4-25.7); Calc. Creatinine Clearance 33 mL/min (70-130); Calcium 8.3 mg/dL (7.8-10.44); Carbon Dioxide 31 mmol/L (23-31); Chloride 104 mmol/L (98-107); Glucose 264 mg/dL (83-110); Magnesium 2.4 mg/dL (1.6-2.6); Potassium 4.3 mmol/L (3.5-5.1); Sodium 146 mmol/L (136-145)
[2021-11-29] MEDS: Piperacillin/Tazobactam 3.375 GM in Sodium Chloride 0.9% 100 ML IVPB SCH ×3 (04:19→20:58)
[2021-11-29 05:09] LABS: Hemoglobin 8.1 g/dL (13.5-17.5); Lymphocytes 3 % (21-51); MDiff Complete? YES; Mean Corpuscular HGB CONC 36.3 g/dL (32.0-36.0); Mean Corpuscular Hemoglobin 30.6 pg (27.0-33.0); Mean Corpuscular Volume 84.2 fl (81.2-95.1); Mean Platelet Volume 11.7 fl (7.4-10.4); Monocytes 4 % (0-10); Neutrophil 93 % (42-75); Platelet Count 207 10x3/uL (150-450); Platelet Morphology Comment Appears Adequate; RBC Distribution Width 18.4 % (11.5-14.5); Red Blood Cell (RBC) Count 2.65 10x6/uL (4.32-5.72); White Blood Cell (WBC) Count 11.2 10x3/uL (3.5-10.5)
[2021-11-29] MEDS: Propofol 1,000 MG/100 ML VIAL IV PRN ×3 (05:37→18:31)
[2021-11-29] MEDS: Mometasone Furoate 220 MCG AER IH SCH ×2 (08:52→20:00)
[2021-11-29] MEDS: Amlodipine 10 MG TAB PO SCH (08:57)
[2021-11-29] MEDS: Ascorbic Acid 500 mg Chewable Tablet PO SCH (08:58)
[2021-11-29] MEDS: Zinc Sulfate 220 MG CAP PO SCH (08:58)
[2021-11-29] MEDS: Dexamethasone 20 MG/5 ML VIAL SLOW IVP SCH ×2 (08:58→20:57)
[2021-11-29] MEDS: Aspirin Chewable 81 MG TAB PO SCH (08:58)
[2021-11-29] MEDS: Lantus 1000 UNITS/10 ML VIAL SC SCH (08:59)
[2021-11-29] MEDS: fentaNYL Citrate-0.9 % NaCl/PF 100 ML IVPB SCH (09:07)
[2021-11-29] MEDS: hydrALAZINE 25 MG TAB PO SCH ×3 (09:14→20:57)
[2021-11-29] MEDS ORDERED: hydrALAZINE 25 MG TAB ONE (09:16)
[2021-11-29 09:23] LABS: ALT (SGPT) 29 U/L (8-55); AST (SGOT) 15 U/L (5-34); Albumin 2.4 g/dL (3.4-4.8); Alkaline Phosphatase 68 U/L (40-110); Bilirubin, Direct 0.5 mg/dL (0.1-0.3); Protein, Total 6.1 g/dL (5.8-8.1)
[2021-11-29] MEDS: Vecuronium 10 MG VIAL IV PRN (11:25)
[2021-11-29] MEDS: HumaLOG 300 UNITS/3 ML VIAL SC PRN ×3 (12:03→20:59)
[2021-11-29] MEDS: BARICITINIB 1 MG TAB PO SCH (17:05)
[2021-11-29 17:08] LABS: CO2 Tension 28.1 mmHg (35.0-45.0); Calcium, Ionized (arterial) 1.08 mmol/L (1.12-1.30); Carboxyhemoglobin (COHb) 0.3 gm% (0.0-3.0); Hemoglobin (Hb) 8.4 g/dL (14.0-18.0); O2 Tension (PaO2), arterial 128.4 mmHg (> 60.0); Potassium - ABG Lab 3.7 mmol/L (3.70-5.30); Puncture Site RBA; pH, Arterial 7.66 (7.35-7.45)
[2021-11-29 17:13] LABS: ALV-art Gradient 192.975 mmHg (0-20)
[2021-11-29] MEDS: Enoxaparin Sodium 120 MG/0.8 ML SYRINGE SC SCH (20:58)
[2021-11-29] MEDS: Cholecalciferol 1,000 UNITS (25 MCG) TAB PO SCH (20:58)
[2021-11-29] MEDS: Atorvastatin Calcium 10 MG TAB PO SCH (20:58)
[2021-11-29] MEDS: Famotidine 20 MG TAB PO SCH (21:09)
[2021-11-29] MEDS ORDERED: acetaZOLAMIDE Sodium 500 mg Vial IVP SCH (21:30)
[2021-11-30] MEDS: HumaLOG 300 UNITS/3 ML VIAL SC PRN ×5 (00:30→21:15)
[2021-11-30] MEDS: Propofol 1,000 MG/100 ML VIAL IV PRN ×3 (01:12→15:54)
[2021-11-30] MEDS: Piperacillin/Tazobactam 3.375 GM in Sodium Chloride 0.9% 100 ML IVPB SCH ×3 (04:37→21:12)
[2021-11-30 04:53] LABS: Anisocytosis SLIGHT = 6-15 cells (100X) (0-5/hpf); Eosinophils 1 % (0-10); Hemoglobin 7.3 g/dL (13.5-17.5); Lymphocytes 1 % (21-51); MDiff Complete? YES; Mean Corpuscular HGB CONC 31.7 g/dL (32.0-36.0); Mean Corpuscular Hemoglobin 27.4 pg (27.0-33.0); Mean Corpuscular Volume 86.5 fl (81.2-95.1); Mean Platelet Volume 11.3 fl (7.4-10.4); Monocytes 1 % (0-10); Neutrophil 97 % (42-75); Platelet Count 180 10x3/uL (150-450); Platelet Morphology Comment Appears Adequate; RBC Distribution Width 18.3 % (11.5-14.5); Red Blood Cell (RBC) Count 2.66 10x6/uL (4.32-5.72); Target Cells SLIGHT = 2-5 cells (100X) (0-1/hpf)
[2021-11-30 05:44] LABS: Anion Gap 17 mmol/L (10-20); BUN (Urea Nitrogen) 75 mg/dL (8.4-25.7); Calc. Creatinine Clearance 33 mL/min (70-130); Carbon Dioxide 27 mmol/L (23-31); Chloride 109 mmol/L (98-107); Glucose 167 mg/dL (83-110); Potassium 4.2 mmol/L (3.5-5.1); Sodium 149 mmol/L (136-145)
[2021-11-30 06:00] LABS: CRP (Inflammatory) 1.85 mg/dL (= or < 0.5)
[2021-11-30] MEDS: Mometasone Furoate 220 MCG AER IH SCH ×2 (08:18→16:35)
[2021-11-30] MEDS: Zinc Sulfate 220 MG CAP PO SCH (08:29)
[2021-11-30] MEDS: Dexamethasone 20 MG/5 ML VIAL SLOW IVP SCH ×2 (08:29→21:12)
[2021-11-30] MEDS: hydrALAZINE 25 MG TAB PO SCH ×3 (08:30→21:11)
[2021-11-30] MEDS: Ascorbic Acid 500 mg Chewable Tablet PO SCH (08:31)
[2021-11-30] MEDS: Aspirin Chewable 81 MG TAB PO SCH (08:31)
[2021-11-30] MEDS: Lantus 1000 UNITS/10 ML VIAL SC SCH (08:56)
[2021-11-30] MEDS: fentaNYL Citrate-0.9 % NaCl/PF 100 ML IVPB SCH (09:33)
[2021-11-30 09:59] LABS: Actual Bicarbonate (HCO3a) 30.5 mEq/L (22-28); Base Excess (BEa) 5.7 mEq/L (-2.0 to +3.0); CO2 Tension 46.1 mmHg (35.0-45.0); Calcium, Ionized (arterial) 1.09 mmol/L (1.12-1.30); Carboxyhemoglobin (COHb) 0.1 gm% (0.0-3.0); Hemoglobin (Hb) 8.3 g/dL (14.0-18.0); O2 Tension (PaO2), arterial 134.2 mmHg (> 60.0); Potassium - ABG Lab 3.8 mmol/L (3.70-5.30); Puncture Site RBA; pH, Arterial 7.44 (7.35-7.45)
[2021-11-30 10:01] LABS: ALV-art Gradient 164.675 mmHg (0-20)
[2021-11-30] MEDS: Amlodipine 10 MG TAB PO SCH (10:11)
[2021-11-30 13:03] LABS: Actual Bicarbonate (HCO3a) 33.2 mEq/L (22-28); Base Excess (BEa) 5.4 mEq/L (-2.0 to +3.0); CO2 Tension 67.2 mmHg (35.0-45.0); Calcium, Ionized (arterial) 1.12 mmol/L (1.12-1.30); Carboxyhemoglobin (COHb) 0.1 gm% (0.0-3.0); Hemoglobin (Hb) 11.1 g/dL (14.0-18.0); O2 Tension (PaO2), arterial 84.1 mmHg (> 60.0); Puncture Site RBA; pH, Arterial 7.31 (7.35-7.45)
[2021-11-30] MEDS: BARICITINIB 1 MG TAB PO SCH (17:12)
[2021-11-30] MEDS: Famotidine 20 MG TAB PO SCH (21:11)
[2021-11-30] MEDS: Atorvastatin Calcium 10 MG TAB PO SCH (21:11)
[2021-11-30] MEDS: Cholecalciferol 1,000 UNITS (25 MCG) TAB PO SCH (21:11)
[2021-11-30] MEDS: Enoxaparin Sodium 120 MG/0.8 ML SYRINGE SC SCH (21:12)
[2021-12-01] MEDS: Propofol 1,000 MG/100 ML VIAL IV PRN ×3 (00:42→21:33)
[2021-12-01] MEDS: HumaLOG 300 UNITS/3 ML VIAL SC PRN ×5 (00:44→16:19)
[2021-12-01 04:08] LABS: ALT (SGPT) 29 U/L (8-55); AST (SGOT) 16 U/L (5-34); Albumin 2.5 g/dL (3.4-4.8); Alkaline Phosphatase 74 U/L (40-110); Anion Gap 16 mmol/L (10-20); BUN (Urea Nitrogen) 80 mg/dL (8.4-25.7); Bilirubin, Total 0.7 mg/dL (0.2-1.2); Calc. Creatinine Clearance 26 mL/min (70-130); Carbon Dioxide 27 mmol/L (23-31); Chloride 111 mmol/L (98-107); Glucose 245 mg/dL (83-110); Potassium 4.3 mmol/L (3.5-5.1); Protein, Total 6.5 g/dL (5.8-8.1); Sodium 150 mmol/L (136-145)
[2021-12-01 04:10] LABS: #Eosinphils 0.1 10x3/uL (0.0-0.5); #Monocytes 0.3 10x3/uL (0.0-1.1); #Neutrophils 11.8 10x3/uL (1.5-8.4); %Basophils 0.1 % (0.0-2.0); %Eosinophils 0.5 % (0.0-6.0); %Lymphocytes 1.8 % (18.0-47.0); %Neutrophils 94.5 % (40.0-75.0); Hemoglobin 8.6 g/dL (13.5-17.5); Mean Corpuscular Hemoglobin 31.2 pg (27.0-33.0); Mean Corpuscular Volume 91.7 fl (81.2-95.1); Mean Platelet Volume 11.6 fl (7.4-10.4); Platelet Count 160 10x3/uL (150-450); RBC Distribution Width 19.1 % (11.5-14.5); Red Blood Cell (RBC) Count 2.76 10x6/uL (4.32-5.72); White Blood Cell (WBC) Count 12.4 10x3/uL (3.5-10.5)
[2021-12-01] MEDS: Piperacillin/Tazobactam 3.375 GM in Sodium Chloride 0.9% 100 ML IVPB SCH ×3 (04:26→21:36)
[2021-12-01 07:08] LABS: Base Excess (BEa) 3.9 mEq/L (-2.0 to +3.0); CO2 Tension 53.5 mmHg (35.0-45.0); Calcium, Ionized (arterial) 1.09 mmol/L (1.12-1.30); Carboxyhemoglobin (COHb) 0.4 gm% (0.0-3.0); Hemoglobin (Hb) 8.8 g/dL (14.0-18.0); O2 Tension (PaO2), arterial 93.7 mmHg (> 60.0); Potassium - ABG Lab 3.9 mmol/L (3.70-5.30); Puncture Site RBA; pH, Arterial 7.37 (7.35-7.45)
[2021-12-01 07:11] LABS: ALV-art Gradient 124.625 mmHg (0-20)
[2021-12-01] MEDS: Dexamethasone 20 MG/5 ML VIAL SLOW IVP SCH ×2 (08:00→21:33)
[2021-12-01] MEDS: Aspirin Chewable 81 MG TAB PO SCH (08:00)
[2021-12-01] MEDS: Amlodipine 10 MG TAB PO SCH (08:00)
[2021-12-01] MEDS: Zinc Sulfate 220 MG CAP PO SCH (08:00)
[2021-12-01] MEDS: Lantus 1000 UNITS/10 ML VIAL SC SCH (08:01)
[2021-12-01] MEDS: hydrALAZINE 25 MG TAB PO SCH ×3 (08:01→21:35)
[2021-12-01] MEDS: Ascorbic Acid 500 mg Chewable Tablet PO SCH (08:01)
[2021-12-01] MEDS: Mometasone Furoate 220 MCG AER IH SCH (08:03)
[2021-12-01] MEDS: BARICITINIB 1 MG TAB PO SCH (16:21)
[2021-12-01] MEDS: fentaNYL Citrate-0.9 % NaCl/PF 100 ML IVPB SCH (16:22)
[2021-12-01] MEDS: Enoxaparin Sodium 120 MG/0.8 ML SYRINGE SC SCH (21:33)
[2021-12-01] MEDS: Atorvastatin Calcium 10 MG TAB PO SCH (21:35)
[2021-12-01] MEDS: Cholecalciferol 1,000 UNITS (25 MCG) TAB PO SCH (21:35)
[2021-12-01] MEDS: Famotidine 20 MG TAB PO SCH (21:35)
[2021-12-02] MEDS: Mometasone Furoate 220 MCG AER IH SCH ×3 (00:41→19:54)
[2021-12-02] MEDS: HumaLOG 300 UNITS/3 ML VIAL SC PRN ×4 (00:46→11:57)
[2021-12-02 04:22] LABS: #Eosinphils 0.1 10x3/uL (0.0-0.5); #Monocytes 0.3 10x3/uL (0.0-1.1); #Neutrophils 11.9 10x3/uL (1.5-8.4); %Basophils 0.1 % (0.0-2.0); %Eosinophils 0.5 % (0.0-6.0); %Lymphocytes 2.6 % (18.0-47.0); %Monocytes 2.6 % (0.0-10.0); Hemoglobin 7.8 g/dL (13.5-17.5); Mean Corpuscular HGB CONC 31.6 g/dL (32.0-36.0); Mean Corpuscular Hemoglobin 28.7 pg (27.0-33.0); Mean Corpuscular Volume 90.8 fl (81.2-95.1); Mean Platelet Volume 11.8 fl (7.4-10.4); Platelet Count 171 10x3/uL (150-450); RBC Distribution Width 18.7 % (11.5-14.5); Red Blood Cell (RBC) Count 2.72 10x6/uL (4.32-5.72); White Blood Cell (WBC) Count 12.8 10x3/uL (3.5-10.5)
[2021-12-02 04:39] LABS: ALT (SGPT) 26 U/L (8-55); AST (SGOT) 15 U/L (5-34); Albumin 2.4 g/dL (3.4-4.8); Alkaline Phosphatase 69 U/L (40-110); Anion Gap 14 mmol/L (10-20); BUN (Urea Nitrogen) 86 mg/dL (8.4-25.7); Bilirubin, Total 0.5 mg/dL (0.2-1.2); Calc. Creatinine Clearance 29 mL/min (70-130); Calcium 7.8 mg/dL (7.8-10.44); Carbon Dioxide 29 mmol/L (23-31); Chloride 110 mmol/L (98-107); Globulin 3.7 g/dL (2.4-3.5); Glucose 262 mg/dL (83-110); Potassium 4.1 mmol/L (3.5-5.1); Protein, Total 6.1 g/dL (5.8-8.1); Sodium 149 mmol/L (136-145)
[2021-12-02] MEDS: Piperacillin/Tazobactam 3.375 GM in Sodium Chloride 0.9% 100 ML IVPB SCH ×3 (04:51→22:38)
[2021-12-02] MEDS: hydrALAZINE 25 MG TAB PO SCH ×3 (07:55→22:38)
[2021-12-02] MEDS: Dexamethasone 20 MG/5 ML VIAL SLOW IVP SCH ×2 (07:55→22:37)
[2021-12-02] MEDS: Zinc Sulfate 220 MG CAP PO SCH (07:56)
[2021-12-02] MEDS: Ascorbic Acid 500 mg Chewable Tablet PO SCH (07:56)
[2021-12-02] MEDS: Aspirin Chewable 81 MG TAB PO SCH (07:56)
[2021-12-02] MEDS: Amlodipine 10 MG TAB PO SCH (07:56)
[2021-12-02] MEDS: Lantus 1000 UNITS/10 ML VIAL SC SCH (08:01)
[2021-12-02 09:25] LABS: Actual Bicarbonate (HCO3a) 26.2 mEq/L (22-28); Base Excess (BEa) 0.5 mEq/L (-2.0 to +3.0); CO2 Tension 47.3 mmHg (35.0-45.0); Calcium, Ionized (arterial) 1.13 mmol/L (1.12-1.30); Carboxyhemoglobin (COHb) 0.6 gm% (0.0-3.0); Hemoglobin (Hb) 9.2 g/dL (14.0-18.0); O2 Tension (PaO2), arterial 84.9 mmHg (> 60.0); Potassium - ABG Lab 3.8 mmol/L (3.70-5.30); Puncture Site RBA; pH, Arterial 7.36 (7.35-7.45)
[2021-12-02 09:28] LABS: ALV-art Gradient 141.175 mmHg (0-20)
[2021-12-02 09:44] LABS: ALT (SGPT) 27 U/L (8-55); AST (SGOT) 17 U/L (5-34); Albumin 2.6 g/dL (3.4-4.8); Alkaline Phosphatase 73 U/L (40-110); Bilirubin, Direct 0.3 mg/dL (0.1-0.3); Bilirubin, Total 0.6 mg/dL (0.2-1.2); Protein, Total 6.7 g/dL (5.8-8.1)
[2021-12-02] MEDS ORDERED: Loratadine 10 MG TAB PO PRN (12:03)
[2021-12-02] MEDS ORDERED: Calcium Carbonate 500 MG ChewTAB PO PRN (12:03)
[2021-12-02] MEDS ORDERED: Acetaminophen 650 MG Suppository PR PRN (12:03)
[2021-12-02] MEDS ORDERED: Artificial Tear Sol 15 ML BOT EA EYE PRN (12:03)
[2021-12-02] MEDS ORDERED: hydrALAZINE 20 MG/ML VIAL SLOW IVP PRN (12:03)
[2021-12-02] MEDS ORDERED: Senokot S 8.6-50 MG TAB PO PRN (12:03)
[2021-12-02] MEDS ORDERED: Ondansetron ODT 4 MG TAB PO PRN (12:03)
[2021-12-02] MEDS ORDERED: Cepastat Lozenges 1 LOZ PO PRN (12:03)
[2021-12-02] MEDS ORDERED: Loperamide HCl 2 MG CAP PO PRN (12:03)
[2021-12-02] MEDS ORDERED: Hydrocerin (Eucerin) Cream 120 gm Jar TOP PRN (12:03)
[2021-12-02] MEDS ORDERED: Bisacodyl 5 MG TAB PO PRN (12:03)
[2021-12-02] MEDS ORDERED: Sodium Chloride 0.65% Nasal 44 ML BOT EA NARE PRN (12:03)
[2021-12-02] MEDS ORDERED: GUAIFENESIN SF SOLN 200 MG/10 ML UDCUP PO PRN (12:03)
[2021-12-02] MEDS ORDERED: Ondansetron PF 4 MG/2 ML Vial IVP PRN (12:03)
[2021-12-02] MEDS: BARICITINIB 1 MG TAB PO SCH (17:27)
[2021-12-02] MEDS: Cholecalciferol 1,000 UNITS (25 MCG) TAB PO SCH (22:37)
[2021-12-02] MEDS: Atorvastatin Calcium 10 MG TAB PO SCH (22:37)
[2021-12-02] MEDS: Enoxaparin Sodium 120 MG/0.8 ML SYRINGE SC SCH (22:37)
[2021-12-02] MEDS: Famotidine 20 MG TAB PO SCH (22:38)
[2021-12-03 04:58] LABS: Phosphorus 5.2 mg/dL (2.3-4.7)
[2021-12-03 05:16] LABS: Anion Gap 17 mmol/L (10-20); BUN (Urea Nitrogen) 99 mg/dL (8.4-25.7); Calc. Creatinine Clearance 25 mL/min (70-130); Calcium 7.8 mg/dL (7.8-10.44); Carbon Dioxide 26 mmol/L (23-31); Chloride 114 mmol/L (98-107); Glucose 94 mg/dL (83-110); Magnesium 2.7 mg/dL (1.6-2.6); Potassium 4.1 mmol/L (3.5-5.1); Sodium 153 mmol/L (136-145)
[2021-12-03] MEDS: Piperacillin/Tazobactam 3.375 GM in Sodium Chloride 0.9% 100 ML IVPB SCH (06:01)
[2021-12-03 07:31] LABS: Hemoglobin 4.7 g/dL (13.5-17.5); Mean Corpuscular HGB CONC 34.3 g/dL (32.0-36.0); Mean Corpuscular Hemoglobin 32.6 pg (27.0-33.0); Mean Corpuscular Volume 95.1 fl (81.2-95.1); Mean Platelet Volume 11.5 fl (7.4-10.4); Platelet Count 197 10x3/uL (150-450); RBC Distribution Width 19.5 % (11.5-14.5); Red Blood Cell (RBC) Count 1.44 10x6/uL (4.32-5.72); White Blood Cell (WBC) Count 20.8 10x3/uL (3.5-10.5)
[2021-12-03 07:48] LABS: MDiff Complete? YES
[2021-12-03 07:51] LABS: Lymphocytes 3 % (21-51); Monocytes 5 % (0-10); Neutrophil 92 % (42-75)
[2021-12-03 07:52] LABS: Platelet Morphology Comment Appears Adequate
[2021-12-03 07:57] LABS: Rouleaux Formation SLIGHT = 1-5 cells (100X) (None Seen)
[2021-12-03 07:58] LABS: Reflex for Review?? YES
[2021-12-03] MEDS ORDERED: DC Sedation Protocol FS ONE (07:59)
[2021-12-03] MEDS ORDERED: Dextrose 5% in Water 1,000 ML IV SCH (08:00)
[2021-12-03] MEDS ORDERED: Ventolin HFA Inhaler 60 PUFF INHALER INH PRN (08:21)
[2021-12-03] MEDS ORDERED: Furosemide 40 MG/4 ML VIAL SLOW IVP SCH (08:45)
[2021-12-03] MEDS ORDERED: Pantoprazole 40 MG VIAL IVP SCH (09:00)
[2021-12-03] MEDS ORDERED: Amlodipine 5 MG TAB PO SCH (09:00)
[2021-12-03 09:01] VITALS: BMI 25.7
[2021-12-03] MEDS: Metoprolol Tartrate 5 MG/5 ML VIAL IVP SCH ×2 (09:25→21:04)
[2021-12-03] MEDS: Dexamethasone 20 MG/5 ML VIAL SLOW IVP SCH ×2 (09:25→21:03)
[2021-12-03] MEDS: Pantoprazole 40 MG VIAL IVP SCH ×2 (09:26→21:04)
[2021-12-03] MEDS: Zinc Sulfate 220 MG CAP PO SCH (09:27)
[2021-12-03] MEDS: Aspirin Chewable 81 MG TAB PO SCH (09:27)
[2021-12-03] MEDS: Ascorbic Acid 500 mg Chewable Tablet PO SCH (09:27)
[2021-12-03] MEDS: Mometasone Furoate 220 MCG AER IH SCH (09:35)
[2021-12-03 15:12] VITALS: BP 145/64; TEMP 97.4
[2021-12-03 15:59] LABS: Mean Corpuscular HGB CONC 35.9 g/dL (32.0-36.0); Mean Corpuscular Hemoglobin 32.9 pg (27.0-33.0); Mean Corpuscular Volume 91.5 fl (81.2-95.1); Mean Platelet Volume 11.8 fl (7.4-10.4); Platelet Count 171 10x3/uL (150-450); RBC Distribution Width 16.7 % (11.5-14.5); Red Blood Cell (RBC) Count 2.13 10x6/uL (4.32-5.72); White Blood Cell (WBC) Count 26.2 10x3/uL (3.5-10.5)
[2021-12-03 17:06] LABS: Bilirubin Neg (Negative); Blood, Urine Negative (Negative); Clarity Clear (Clear); Glucose, Urine (Dipstick) Normal (Negative); Ketone, Urine Negative (Negative); Leukocyte Negative (Negative); Nitrite Negative (Negative); Protein, Urine (Dipstick) 30 mg/dl (Neg-Trace); Specific Gravity, Urine 1.015 (1.002-1.036); Urobilinogen Normal mg/dL (Less than 2)
[2021-12-03 17:49] LABS: Bacteria/HPF 2+ HPF (None Seen); Mucous/LPF 2+ LPF (<2+); Squamous Epithelial 0-3 HPF (0-3); Transitional Epithelial 0-3 HPF (None Seen); WBC/HPF 0-3 HPF (0-3)
[2021-12-03 17:50] LABS: Yeast-Budding Rare HPF (None Seen)
[2021-12-03 18:12] LABS: Lymphocytes 1 % (21-51); Monocytes 3 % (0-10); Neutrophil 96 % (42-75)
[2021-12-03 18:13] LABS: MDiff Complete? YES
[2021-12-03 18:14] LABS: Anisocytosis SLIGHT = 6-15 cells (100X) (0-5/hpf); Hypochromia SLIGHT = 6-15 cells (100X) (0-5/hpf); Target Cells SLIGHT = 2-5 cells (100X) (0-1/hpf)
[2021-12-03 18:15] LABS: Platelet Morphology Comment Appears Adequate
[2021-12-03] MEDS ORDERED: Mometasone/Formoterol 200/5 60 PUFF INH SCH (18:30)
[2021-12-03 19:12] LABS: Rouleaux Formation SLIGHT = 1-5 cells (100X) (None Seen)
[2021-12-03] MEDS: BARICITINIB 1 MG TAB PO SCH (19:15)
[2021-12-03] MEDS: Albumin 25% 25 GM/100 ML BOT IVPB SCH ×2 (19:26→22:55)
[2021-12-03] MEDS: Atorvastatin Calcium 10 MG TAB PO SCH (21:03)
[2021-12-03] MEDS: Cholecalciferol 1,000 UNITS (25 MCG) TAB PO SCH (21:03)
[2021-12-04 04:43] LABS: Anion Gap 21 mmol/L (10-20); BUN (Urea Nitrogen) 118 mg/dL (8.4-25.7); Calc. Creatinine Clearance 19 mL/min (70-130); Carbon Dioxide 24 mmol/L (23-31); Chloride 110 mmol/L (98-107); Magnesium 2.8 mg/dL (1.6-2.6); Potassium 4.6 mmol/L (3.5-5.1); Sodium 150 mmol/L (136-145)
[2021-12-04 04:46] LABS: Glucose 272 mg/dL (83-110)
[2021-12-04 04:48] LABS: CRP (Inflammatory) 13.45 mg/dL (= or < 0.5)
[2021-12-04] MEDS ORDERED: Norepinephrine 8 MG/0.9% NS 250 ML ONE (05:23)
[2021-12-04] MEDS ORDERED: Norepinephrine 8 MG/0.9% NS 250 ML IVPB SCH (05:30)
[2021-12-04] MEDS ORDERED: EPINEPHrine 4 MG in Dextrose 5% in Water 250 ML IV SCH (06:45)
[2021-12-04] MEDS ORDERED: EPINEPHrine 4 MG, Admixture Fee 1 EACH in Dextrose 5% in Water 250 ML IV SCH (06:45)
[2021-12-04 07:10] LABS: Hemoglobin 5.1 g/dL (13.5-17.5); Mean Corpuscular HGB CONC 31.3 g/dL (32.0-36.0); Mean Corpuscular Volume 89.6 fl (81.2-95.1); Mean Platelet Volume 12.6 fl (7.4-10.4); RBC Distribution Width 17.2 % (11.5-14.5); Red Blood Cell (RBC) Count 1.82 10x6/uL (4.32-5.72); White Blood Cell (WBC) Count 28.1 10x3/uL (3.5-10.5)
[2021-12-04 07:18] LABS: Lymphocytes 4 % (21-51); MDiff Complete? YES; Monocytes 4 % (0-10); Neutrophil 92 % (42-75); Platelet Morphology Comment Appears Decreased; Rouleaux Formation SLIGHT = 1-5 cells (100X) (None Seen)
[2021-12-04 07:22] LABS: Platelet Count 139 10x3/uL (150-450)
== END 2021-12-04 07:01 | disposition expired | DRG 207 ==
LOC: CSHERS 16:38 → CSHTELE 22:15 → CSHICU 11-23 03:41
PROVIDERS: ADMIT Family Medicine; ATTEND Internal Medicine
PROC: 8E0ZXY6 Isolation (ICD-10-PCS; 2021-11-18)
PROC: XW0DXM6 Introduction of Baricitinib into Mouth and Pharynx, External Approach, New Technology Group 6 (ICD-10-PCS; 2021-11-23)
PROC: 5A09357 Assistance with Respiratory Ventilation, Less than 24 Consecutive Hours, Continuous Positive Airway Pressure (ICD-10-PCS; 2021-11-23)
PROC: 5A1955Z Respiratory Ventilation, Greater than 96 Consecutive Hours (ICD-10-PCS; principal; 2021-11-27)
PROC: 0BH17EZ Insertion of Endotracheal Airway into Trachea, Via Natural or Artificial Opening (ICD-10-PCS; 2021-11-27)
PROC: 30233N1 Transfusion of Nonautologous Red Blood Cells into Peripheral Vein, Percutaneous Approach (ICD-10-PCS; 2021-11-30)
PROC: 05HN33Z Insertion of Infusion Device into Left Internal Jugular Vein, Percutaneous Approach (ICD-10-PCS; 2021-12-04)
PROC: B544ZZA Ultrasonography of Left Jugular Veins, Guidance (ICD-10-PCS; 2021-12-04)
PROC: 5A12012 Performance of Cardiac Output, Single, Manual (ICD-10-PCS; 2021-12-04)
PROC: 3E043XZ Introduction of Vasopressor into Central Vein, Percutaneous Approach (ICD-10-PCS; 2021-12-04)
PROC: 0BH18EZ Insertion of Endotracheal Airway into Trachea, Via Natural or Artificial Opening Endoscopic (ICD-10-PCS; 2021-12-04)
DX: U07.1 COVID-19 (principal); J12.82 Pneumonia due to coronavirus disease 2019; J80 Acute respiratory distress syndrome; I50.33 Acute on chronic diastolic (congestive) heart failure; A41.9 Sepsis, unspecified organism; R65.20 Severe sepsis without septic shock; N17.9 Acute kidney failure, unspecified; E87.4 Mixed disorder of acid-base balance; I13.0 Hypertensive heart and chronic kidney disease with heart failure and stage 1 through stage 4 chronic kidney disease, or unspecified chronic kidney disease; N18.4 Chronic kidney disease, stage 4 (severe); E87.0 Hyperosmolality and hypernatremia; E11.65 Type 2 diabetes mellitus with hyperglycemia; I35.0 Nonrheumatic aortic (valve) stenosis; E11.22 Type 2 diabetes mellitus with diabetic chronic kidney disease; E78.5 Hyperlipidemia, unspecified; D63.1 Anemia in chronic kidney disease; I27.20 Pulmonary hypertension, unspecified; E11.649 Type 2 diabetes mellitus with hypoglycemia without coma; R00.1 Bradycardia, unspecified; I46.9 Cardiac arrest, cause unspecified; Z79.4 Long term (current) use of insulin; Z79.899 Other long term (current) drug therapy; Z79.82 Long term (current) use of aspirin; Z90.49 Acquired absence of other specified parts of digestive tract; Z90.89 Acquired absence of other organs; Z98.890 Other specified postprocedural states; Z87.891 Personal history of nicotine dependence
CPT/HCPCS: 36415; 36416; 36430; 36600; 71045; 76770; 80048; 80053; 80076; 80202; 81001; 82274; 82553; 82805; 83605; 83735; 83880; 84100; 84145; 84443; 84484; 85007; 85025; 85027; 85060; 85520; 85610; 85730; 86140; 86850; 86900; 86901; 87040; 87070; 87081; 87205; 87449; 87899; 93005; 93010; 93306; 94002; 94003; 94640; 94660; 94760; 94762; 96365; 96366; 96367; C9113; J0171; J0456; J0461; J0692; J0696; J1100; J1120; J1650; J1815; J1940; J2543; J2704; J3370; J3490; J7050; J7070; J7620; P9016; P9047